=== PATIENT | male | born 1990 | race African-American/Black ===

== ENCOUNTER 2024-01-11 05:59 | Emergency (ER) | payer SELFPAY ==
[~2024-01-11] VITALS: Ht 190.5 cm; Wt 84.4 kg
[2024-01-11 06:10] VITALS: BP 142/88; TEMP 98.4; O2SAT 99
[2024-01-11] MEDS ORDERED: LIDO30AD10 TP (06:27)
[2024-01-11] MEDS ORDERED: CYCL5TAB PO (06:27)
[2024-01-11] MEDS ORDERED: HYDR-4303 PO (06:27)
[2024-01-11] MEDS ORDERED: HYDROCODONE/APAP 5/325MG TABLET ONE (06:36)
[2024-01-11] MEDS ORDERED: LIDOCAINE 5% (PATCH) 1 EA PATCH TP ONE (06:36)
[2024-01-11] MEDS: HYDROCODONE/APAP 5/325MG TABLET PO ONE (06:37)
[2024-01-11] MEDS: LIDOCAINE 5% (PATCH) 1 EA PATCH TP STA (06:37)
[2024-01-11] MEDS: CYCLOBENZAPRINE 10 MG TABLET PO ONE (06:37)
[2024-01-11] MEDS ORDERED: CYCLOBENZAPRINE 10 MG TABLET ONE (06:37)
== END 2024-01-11 06:39 | disposition home or self-care (01) ==
LOC: ER 06:09
DX: M54.12 Radiculopathy, cervical region (principal); Z88.8 Allergy status to other drugs, medicaments and biological substances; V43.62XA Car passenger injured in collision with other type car in traffic accident, initial encounter; Y93.89 Activity, other specified; Y92.89 Other specified places as the place of occurrence of the external cause; Y99.8 Other external cause status